=== PATIENT | female | born 1965 | race Caucasian/White ===

== ENCOUNTER → 2017-09-15 | Outpatient (CLI) | payer BC | LOC: MHCPAIN 14:01 | DX: G89.29 Other chronic pain (principal); M54.81 Occipital neuralgia; F17.210 Nicotine dependence, cigarettes, uncomplicated | CPT/HCPCS: G0463 ==

== ENCOUNTER → 2017-11-26 | Outpatient (CLI) | payer BC | LOC: MHCPAIN 08:55 | DX: M50.31 Other cervical disc degeneration, high cervical region (principal) ==

== ENCOUNTER → 2017-12-04 | Outpatient (CLI) | payer BC | LOC: MHCPAIN 11:29 | DX: G89.29 Other chronic pain (principal); M50.90 Cervical disc disorder, unspecified, unspecified cervical region; M54.81 Occipital neuralgia; R51 Headache | CPT/HCPCS: G0463 ==

== ENCOUNTER → 2017-12-17 | Outpatient (CLI) | payer BC | LOC: MHCPAIN 14:20 | DX: M50.31 Other cervical disc degeneration, high cervical region (principal) ==

== ENCOUNTER → 2018-01-01 | Outpatient (CLI) | payer BC | LOC: MHCPAIN 11:31 | DX: G89.29 Other chronic pain (principal); M50.31 Other cervical disc degeneration, high cervical region; M54.81 Occipital neuralgia; R51 Headache | CPT/HCPCS: G0463 ==

== ENCOUNTER → 2018-02-11 | Outpatient (CLI) | payer BC | LOC: MHCPAIN 09:12 | DX: M54.12 Radiculopathy, cervical region (principal); R51 Headache | CPT/HCPCS: J1100; J2250; J3010 ==